=== PATIENT | male | born 1965 | race African-American/Black ===

== ENCOUNTER 2022-03-23 12:46 | Emergency (ER) | payer SELFPAY ==
[2022-03-23] MEDS ORDERED: Lidocaine 1% PF 5 ML VIAL ONE (13:36)
[2022-03-23] MEDS ORDERED: Boostrix 0.5 ML (Tdap) VIAL (>/=7 yrs of age) ONE (14:26)
[2022-03-23] MEDS ORDERED: Cephalexin 250 MG CAP ONE (14:26)
== END 2022-03-23 15:01 ==
LOC: ERS 12:46
DX: S61.215A Laceration without foreign body of left ring finger without damage to nail, initial encounter (principal); W27.2XXA Contact with scissors, initial encounter; Z23 Encounter for immunization
CPT/HCPCS: 12001; 90471; 90715

== ENCOUNTER 2022-03-28 11:06 | Emergency (ER) | payer SELFPAY | END 2022-03-28 11:43 | disposition home or self-care (01) | LOC: ERS 11:06 | DX: S61.215A Laceration without foreign body of left ring finger without damage to nail, initial encounter (principal); F17.200 Nicotine dependence, unspecified, uncomplicated; W26.8XXA Contact with other sharp object(s), not elsewhere classified, initial encounter ==